=== PATIENT | female | born 1955 | race African-American/Black ===

== ENCOUNTER 2023-08-14 10:48 | Inpatient (IN) | payer MEDICARE, MEDICAID ==
[~2023-08-14] VITALS: Ht 157.5 cm; Wt 71.0 kg
[~2023-08-14 10:48] MED LIST: AMLO10TA4; AMLO10TA80 PO; DEXL60CA3 PO; HYDR200T80; INSU100V28; LOSA1TAB40 PO; METH2.5T PO; SIMV-43 PO; [UNRECOGNIZED DRUG - REMARK]
[2023-08-14] MEDS ORDERED: FUROSEMIDE 40MG/4ML VIAL IVP NR (11:30)
[2023-08-14 12:38] LABS: BASOPHILS % 0.7 % (0.0-2.0); EOSINOPHILS % 0.1 % (0.0-5.0); HEMATOCRIT. 33.2 % (36.0-48.0); HEMOGLOBIN. 10.5 g/dL (12.0-16.0); LYMPHOCYTES % 14.8 % (20.0-50.0); MEAN CORPUSCULAR HEMOGLOBIN 30.1 pg (28.0-32.0); MEAN CORPUSCULAR HGB CONC 31.6 g/dL (31.0-37.0); MEAN CORPUSCULAR VOLUME 95.1 fL (81.0-99.0); MEAN PLATELET VOLUME 8.8 fl (7.4-10.4); MONOCYTES % 5.3 % (2.0-8.0); NEUTROPHILS % 79.1 % (40.0-76.0); PLATELET 268 x1000/uL (130-400); RED BLOOD CELL COUNT 3.49 mill/uL (4.2-5.4); RED CELL DISTRIBUTION WIDTH 16.3 % (11.6-14.6)
[2023-08-14 13:10] LABS: CHLORIDE 94 mEq/L (98-107); INDEX HEMOLYSI 1 (1-3); INDEX ICTERIC 1 (1-4); INDEX LIPEMIC 1 (1-3); POTASSIUM 4.8 mEq/L (3.5-5.1); SODIUM 135 mEq/L (136-145)
[2023-08-14 13:19] LABS: ALANINE AMINOTRANSFERASE 20 IU/L (13-61); ALBUMIN 3.4 g/dL (3.4-5.0); ASPARTATE AMINOTRANSFERASE 54 IU/L (15-37); BILIRUBIN TOTAL 0.4 mg/dL (0.1-1.0); CALCIUM 9.2 mg/dL (8.5-10.1); CARBON DIOXIDE 39 mEq/L (21-32); CREATININE 1.3 mg/dL (0.6-1.3); GLUCOSE 132 mg/dL (70-105); NT PRO B-TYPE NATRIURETIC PEP 4812 pg/mL (5-125); PROTEIN TOTAL 8.9 g/dL (6.0-8.3); TROPONIN I HIGH SENSITIVITY 20 ng/L (<54); UREA NITROGEN BLOOD 28 mg/dL (7-21)
[2023-08-14 15:23] LABS: TROPONIN I HIGH SENSITIVITY 19 ng/L (<54)
[2023-08-14] MEDS ORDERED: AZITHROMYCIN 500MG/250ML 250 ML IV NR (17:30)
[2023-08-14] MEDS ORDERED: PIPERACILLIN/TAZ 3.375G PREMIX 50 ML IV NR (17:30)
[2023-08-14] MEDS ORDERED: ONDANSETRON HCL 4MG/2ML INJ IV PRN (19:00)
[2023-08-14] MEDS ORDERED: IPRATROPIUM/ALBUTEROL 0.5-3(2.5)MG/3ML NEB HHN PRN (19:00)
[2023-08-14] MEDS ORDERED: CLONIDINE 0.1MG TABLET PO PRN (19:00)
[2023-08-14] MEDS ORDERED: ACETAMINOPHEN 325MG TABLET PO PRN ×2 (19:00)
[2023-08-14] MEDS ORDERED: DEXTROSE 50% WATER 50ML SYRINGE IV PRN ×2 (19:00→20:00)
[2023-08-14] MEDS ORDERED: DOCUSATE SODIUM 100MG CAPSULE PO PRN (19:00)
[2023-08-14 19:13] VITALS: BP 119/57; PULSE 81; RESP 19; TEMP 95.5
[2023-08-14 20:00] VITALS: BP 110/75; PULSE 74; RESP 18; TEMP 93.2
[2023-08-14] MEDS ORDERED: INSULIN LISPRO 100 UNITS/ML SUBCUT SCH (21:00)
[2023-08-14] MEDS ORDERED: BLOOD SUGAR DIAGNOSTIC STRIP TEST SCH ×2 (21:00)
[2023-08-14] MEDS: BLOOD SUGAR DIAGNOSTIC STRIP TEST SCH (21:24)
[2023-08-14] MEDS ORDERED: INSULIN LISPRO 100 UNITS/ML SUBCUT ONE (21:29)
[2023-08-14] MEDS: INSULIN LISPRO 100 UNITS/ML SUBCUT SCH (21:39)
[2023-08-14 22:00] LABS: BG BASE EXCESS 9.2 mmol/L (-2.0-2.0); BG CARBOXYHEMOGLOBIN 0.9 % (0.5-1.5); BG DEOXYHEMOGLOBIN 41.2 % (0.0-5.0); BG FRACTION INSPIRED OXYGEN 44; BG HCO3 ACT 42.3 mmol/L (22.0-26.0); BG METHEMOGLOBIN 0.2 % (0.0-1.5); BG OXYGEN SATURATION 58.3 % (92.0-98.5); BG OXYHEMOGLOBIN 57.7 % (94.0-97.0); BG PCO2 137.6 mmHg (35.0-45.0); BG PH 7.106 (7.350-7.450); BG PO2 38.1 mmHg (75.0-100.0); BG SAMPLE SITE RIGHT RADIAL; BG TOTAL HEMOGLOBIN 10.7 g/dL (12.0-18.0); BG VENT MODE NASAL CANNULA
[2023-08-14 23:30] VITALS: RESP 30
[2023-08-15] VITALS (94 sets, daily range): BP systolic 85–149; BP diastolic 53–104; PULSE 84–134; RESP 11–24; TEMP 98–100.3
[2023-08-15 00:13] LABS: BG BASE EXCESS 3.8 mmol/L (-2.0-2.0); BG CARBOXYHEMOGLOBIN 0.7 % (0.5-1.5); BG DEOXYHEMOGLOBIN 16.1 % (0.0-5.0); BG FRACTION INSPIRED OXYGEN 40; BG METHEMOGLOBIN 0.3 % (0.0-1.5); BG OXYGEN SATURATION 83.7 % (92.0-98.5); BG OXYHEMOGLOBIN 82.9 % (94.0-97.0); BG PH 7.053 (7.350-7.450); BG PO2 63.1 mmHg (75.0-100.0); BG SAMPLE SITE RIGHT RADIAL; BG TOTAL HEMOGLOBIN 10.3 g/dL (12.0-18.0); BG VENT MODE MASK - BIPAP
[2023-08-15] MEDS ORDERED: NOREPINEPHRINE 8 MG in DEXT 5% WATER 242 ML IV PRN (00:45)
[2023-08-15] MEDS ORDERED: CEFTRIAXONE 1GM PREMIX 50 ML IV SCH (00:45)
[2023-08-15] MEDS ORDERED: NOREPINEPHRINE 8MG/250ML PMX 250ML IV PRN (02:00)
[2023-08-15] MEDS: IPRATROPIUM/ALBUTEROL 0.5-3(2.5)MG/3ML NEB HHN SCH ×4 (02:03→20:18)
[2023-08-15 02:14] LABS: BG BASE EXCESS 11.8 mmol/L (-2.0-2.0); BG CARBOXYHEMOGLOBIN 0.8 % (0.5-1.5); BG DEOXYHEMOGLOBIN 0.6 % (0.0-5.0); BG FRACTION INSPIRED OXYGEN 50; BG HCO3 ACT 35.7 mmol/L (22.0-26.0); BG METHEMOGLOBIN 0.2 % (0.0-1.5); BG OXYGEN SATURATION 99.4 % (92.0-98.5); BG OXYHEMOGLOBIN 98.4 % (94.0-97.0); BG PCO2 43.6 mmHg (35.0-45.0); BG PH 7.531 (7.350-7.450); BG PO2 137.6 mmHg (75.0-100.0); BG SAMPLE SITE LEFT BRACHIAL; BG TOTAL HEMOGLOBIN 10.8 g/dL (12.0-18.0); BG TOTAL RESPIRATORY RATE 24 b/min; BG VENT MODE VENT - AC
[2023-08-15] MEDS: MIDAZOLAM HCL 100 MG in SODIUM CHLORIDE 0.9% 80 ML IV PRN ×2 (02:30→12:52)
[2023-08-15 02:58] LABS: HEMOGLOBIN. 10.3 g/dL (12.0-16.0); MEAN CORPUSCULAR HEMOGLOBIN 29.7 pg (28.0-32.0); MEAN CORPUSCULAR HGB CONC 31.4 g/dL (31.0-37.0); MEAN CORPUSCULAR VOLUME 94.6 fL (81.0-99.0); MEAN PLATELET VOLUME 9.7 fl (7.4-10.4); PLATELET 207 x1000/uL (130-400); RED BLOOD CELL COUNT 3.49 mill/uL (4.2-5.4); RED CELL DISTRIBUTION WIDTH 16.4 % (11.6-14.6); WHITE BLOOD COUNT 9.3 x1000/uL (4.5-11.0)
[2023-08-15 03:06] LABS: DIFFERENTIAL COMMENT 1
[2023-08-15 03:17] LABS: POTASSIUM 5.1 mEq/L (3.5-5.1)
[2023-08-15 03:23] LABS: CALCIUM 9.3 mg/dL (8.5-10.1); CREATININE 1.6 mg/dL (0.6-1.3)
[2023-08-15] MEDS ORDERED: AZITHROMYCIN 500MG/250ML 250 ML IV SCH (03:30)
[2023-08-15 03:31] LABS: CLARITY URINE TURBID (CLEAR); COLOR URINE ORANGE (YELLOW); GLUCOSE URINE NEGATIVE (NEGATIVE); KETONES URINE NEGATIVE (NEGATIVE); LEUKOCYTE ESTERASE URINE 2+ (NEGATIVE); NITRITE URINE NEGATIVE (NEGATIVE); OCCULT BLOOD URINE 2+ (NEGATIVE); PROTEIN URINE 2+ (NEGATIVE)
[2023-08-15 03:34] LABS: RBC URINE TNTC /hpf (0-2); SQUAMOUS EPITHELIAL CELL URINE 1+ /lpf (RARE/1+); WBC URINE 0-2 /hpf (0-2); YEAST URINE NONE SEEN
[2023-08-15 03:41] LABS: PLATELET ESTIMATE NORMAL; TOXIC GRANULATION 1+
[2023-08-15 04:02] LABS: BACTERIA URINE 1+
[2023-08-15 04:54] LABS: LACTIC ACID 2.6 mmol/L (0.4-2.0)
[2023-08-15] MEDS ORDERED: MAGNESIUM 2 G PREMIX 50 ML IV NR (05:30)
[2023-08-15] MEDS: CEFTRIAXONE 1,000 MG in DEXTROSE 5% WATER 50 ML IV SCH (05:30)
[2023-08-15 06:31] LABS: BASOPHILS % 0.2 % (0.0-2.0); EOSINOPHILS % 0.1 % (0.0-5.0); HEMATOCRIT. 29.6 % (36.0-48.0); HEMOGLOBIN. 9.5 g/dL (12.0-16.0); LYMPHOCYTES % 8.5 % (20.0-50.0); MEAN CORPUSCULAR HEMOGLOBIN 29.9 pg (28.0-32.0); MEAN CORPUSCULAR VOLUME 93.4 fL (81.0-99.0); MEAN PLATELET VOLUME 9.3 fl (7.4-10.4); MONOCYTES % 8.4 % (2.0-8.0); NEUTROPHILS % 82.8 % (40.0-76.0); PLATELET 219 x1000/uL (130-400); RED BLOOD CELL COUNT 3.17 mill/uL (4.2-5.4); RED CELL DISTRIBUTION WIDTH 15.5 % (11.6-14.6); WHITE BLOOD COUNT 13.5 x1000/uL (4.5-11.0)
[2023-08-15 06:34] LABS: CALCIUM 8.8 mg/dL (8.5-10.1); CHLORIDE 96 mEq/L (98-107); POTASSIUM 4.7 mEq/L (3.5-5.1); SODIUM 136 mEq/L (136-145)
[2023-08-15 06:38] LABS: CARBON DIOXIDE 34 mEq/L (21-32); CREATININE 1.5 mg/dL (0.6-1.3); GLUCOSE 178 mg/dL (70-105); PHOSPHORUS 2.4 mg/dL (2.5-4.9); UREA NITROGEN BLOOD 29 mg/dL (7-21)
[2023-08-15] MEDS: BLOOD SUGAR DIAGNOSTIC STRIP TEST SCH ×4 (07:50→21:00)
[2023-08-15] MEDS: INSULIN LISPRO 100 UNITS/ML SUBCUT SCH ×4 (08:20→22:30)
[2023-08-15 08:51] LABS: BG BASE EXCESS 14.5 mmol/L (-2.0-2.0); BG CARBOXYHEMOGLOBIN 0.4 % (0.5-1.5); BG DEOXYHEMOGLOBIN 1.9 % (0.0-5.0); BG FRACTION INSPIRED OXYGEN 50; BG HCO3 ACT 38.6 mmol/L (22.0-26.0); BG METHEMOGLOBIN 0.3 % (0.0-1.5); BG OXYGEN SATURATION 98.1 % (92.0-98.5); BG OXYHEMOGLOBIN 97.4 % (94.0-97.0); BG PCO2 46.7 mmHg (35.0-45.0); BG PH 7.535 (7.350-7.450); BG PO2 100.2 mmHg (75.0-100.0); BG SAMPLE SITE RIGHT RADIAL; BG TOTAL HEMOGLOBIN 9.3 g/dL (12.0-18.0); BG VENT MODE VENT - AC
[2023-08-15] MEDS ORDERED: IOHEXOL-300 100 ML BOTTLE ONE (09:47)
[2023-08-15] MEDS: FUROSEMIDE 40MG/4ML VIAL IVP SCH (09:57)
[2023-08-15 10:16] LABS: INR 1.2; PROTHROMBIN TIME 12.4 sec (9.6-11.0)
[2023-08-15 10:28] LABS: LACTATE DEHYDROGENASE 530 IU/L (100-240)
[2023-08-15] MEDS: PANTOPRAZOLE SODIUM 40 MG/VIAL IV SCH (11:43)
[2023-08-15] MEDS ORDERED: SODIUM BICARBONATE 4% (2.4MEQ) 5ML VIAL IV ONE (13:21)
[2023-08-15 13:36] LABS: BG BASE EXCESS 13.4 mmol/L (-2.0-2.0); BG CARBOXYHEMOGLOBIN 0.2 % (0.5-1.5); BG FRACTION INSPIRED OXYGEN 50; BG HCO3 ACT 36.5 mmol/L (22.0-26.0); BG METHEMOGLOBIN 0.1 % (0.0-1.5); BG OXYHEMOGLOBIN 98.7 % (94.0-97.0); BG PCO2 40.2 mmHg (35.0-45.0); BG PH 7.576 (7.350-7.450); BG SAMPLE SITE RIGHT RADIAL; BG TOTAL HEMOGLOBIN 10.9 g/dL (12.0-18.0); BG VENT MODE VENT - AC
[2023-08-15 15:20] LABS: PROTEIN BODY FLUID 2.5 gm/dL
[2023-08-15 16:50] LABS: BODY FLUID MONOCYTES 27 %; BODY FLUID WBC 110 /cu mm (0-200)
[2023-08-15 16:51] LABS: BODY FLUID RBC 11500 /cu mm (0-2000)
[2023-08-15] MEDS: METHYLPREDNISOLONE SOD SUCC 40MG/ML (ACT-O-VIAL) IV SCH (18:16)
[2023-08-15] MEDS: AZITHROMYCIN 500 MG in DEXT 5% WATER 250 ML IV SCH (23:46)
[2023-08-16] VITALS (72 sets, daily range): BP systolic 91–128; BP diastolic 48–90; PULSE 83–108; RESP 10–21; TEMP 98–100.4
[2023-08-16] MEDS: METHYLPREDNISOLONE SOD SUCC 40MG/ML (ACT-O-VIAL) IV SCH ×3 (02:26→17:44)
[2023-08-16] MEDS: IPRATROPIUM/ALBUTEROL 0.5-3(2.5)MG/3ML NEB HHN SCH ×4 (02:52→20:58)
[2023-08-16 05:37] LABS: CALCIUM 8.7 mg/dL (8.5-10.1); CHLORIDE 97 mEq/L (98-107); HEMATOCRIT. 28.4 % (36.0-48.0); HEMOGLOBIN. 9.1 g/dL (12.0-16.0); INDEX HEMOLYSI 1 (1-3); INDEX ICTERIC 1 (1-4); INDEX LIPEMIC 1 (1-3); MEAN CORPUSCULAR HEMOGLOBIN 29.2 pg (28.0-32.0); MEAN CORPUSCULAR HGB CONC 32.1 g/dL (31.0-37.0); MEAN PLATELET VOLUME 9.1 fl (7.4-10.4); PLATELET 211 x1000/uL (130-400); POTASSIUM 4.8 mEq/L (3.5-5.1); RED BLOOD CELL COUNT 3.12 mill/uL (4.2-5.4); SODIUM 138 mEq/L (136-145); WHITE BLOOD COUNT 10.1 x1000/uL (4.5-11.0)
[2023-08-16 05:44] LABS: DIFFERENTIAL COMMENT 1
[2023-08-16] MEDS: CEFTRIAXONE 1,000 MG in DEXTROSE 5% WATER 50 ML IV SCH (05:53)
[2023-08-16 05:55] LABS: CREATININE 1.6 mg/dL (0.6-1.3); GLUCOSE 191 mg/dL (70-105); UREA NITROGEN BLOOD 29 mg/dL (7-21)
[2023-08-16] MEDS: BLOOD SUGAR DIAGNOSTIC STRIP TEST SCH ×4 (07:48→20:55)
[2023-08-16 09:01] LABS: BG BASE EXCESS 10.6 mmol/L (-2.0-2.0); BG DEOXYHEMOGLOBIN 0.7 % (0.0-5.0); BG FRACTION INSPIRED OXYGEN 50; BG HCO3 ACT 34.8 mmol/L (22.0-26.0); BG METHEMOGLOBIN 0.3 % (0.0-1.5); BG OXYGEN SATURATION 99.3 % (92.0-98.5); BG PCO2 44.8 mmHg (35.0-45.0); BG PH 7.508 (7.350-7.450); BG PO2 180.1 mmHg (75.0-100.0); BG SAMPLE SITE LEFT RADIAL; BG TOTAL HEMOGLOBIN 10.2 g/dL (12.0-18.0); BG TOTAL RESPIRATORY RATE 12 b/min; BG VENT MODE VENT - AC
[2023-08-16] MEDS: PANTOPRAZOLE SODIUM 40 MG/VIAL IV SCH (09:10)
[2023-08-16] MEDS: FUROSEMIDE 40MG/4ML VIAL IVP SCH ×2 (09:10→17:44)
[2023-08-16] MEDS: INSULIN LISPRO 100 UNITS/ML SUBCUT SCH ×4 (09:15→20:55)
[2023-08-16] MEDS ORDERED: MAGNESIUM 2 G PREMIX 50 ML IV NR (10:45)
[2023-08-16] MEDS ORDERED: MORPHINE SULFATE 2 MG/ML CPJ (NOT FOR IM USE) IV PRN (15:30)
[2023-08-16] MEDS ORDERED: LORAZEPAM 2MG/ML CPJ IV PRN (15:30)
[2023-08-16 16:20] LABS: PLATELET ESTIMATE NORMAL
[2023-08-16] MEDS: ENOXAPARIN 40MG/0.4ML SYR SUBCUT SCH (21:14)
[2023-08-16] MEDS: AZITHROMYCIN 500 MG in DEXT 5% WATER 250 ML IV SCH (23:19)
[2023-08-17] VITALS (56 sets, daily range): BP systolic 94–125; BP diastolic 52–77; PULSE 83–121; RESP 12–31; TEMP 97.9–98.7; O2SAT 98
[2023-08-17] MEDS: IPRATROPIUM/ALBUTEROL 0.5-3(2.5)MG/3ML NEB HHN SCH ×3 (01:20→13:13)
[2023-08-17] MEDS: METHYLPREDNISOLONE SOD SUCC 40MG/ML (ACT-O-VIAL) IV SCH ×3 (02:54→17:39)
[2023-08-17] MEDS: CEFTRIAXONE 1,000 MG in DEXTROSE 5% WATER 50 ML IV SCH (05:30)
[2023-08-17 05:51] LABS: POTASSIUM 3.5 mEq/L (3.5-5.1)
[2023-08-17 05:53] LABS: BASOPHILS % 0.1 % (0.0-2.0); HEMATOCRIT. 27.3 % (36.0-48.0); HEMOGLOBIN. 8.8 g/dL (12.0-16.0); LYMPHOCYTES % 7.2 % (20.0-50.0); MEAN CORPUSCULAR HGB CONC 32.5 g/dL (31.0-37.0); MEAN CORPUSCULAR VOLUME 89.4 fL (81.0-99.0); MEAN PLATELET VOLUME 9.5 fl (7.4-10.4); MONOCYTES % 4.5 % (2.0-8.0); NEUTROPHILS % 88.2 % (40.0-76.0); PLATELET 207 x1000/uL (130-400); RED BLOOD CELL COUNT 3.05 mill/uL (4.2-5.4); RED CELL DISTRIBUTION WIDTH 16.8 % (11.6-14.6); WHITE BLOOD COUNT 11.7 x1000/uL (4.5-11.0)
[2023-08-17 05:59] LABS: CALCIUM 9.1 mg/dL (8.5-10.1); CREATININE 1.6 mg/dL (0.6-1.3)
[2023-08-17] MEDS: BLOOD SUGAR DIAGNOSTIC STRIP TEST SCH ×4 (07:34→20:38)
[2023-08-17] MEDS: INSULIN LISPRO 100 UNITS/ML SUBCUT SCH ×4 (07:34→20:45)
[2023-08-17 08:50] LABS: BG BASE EXCESS 10.7 mmol/L (-2.0-2.0); BG CARBOXYHEMOGLOBIN 0.3 % (0.5-1.5); BG FRACTION INSPIRED OXYGEN 40; BG HCO3 ACT 32.5 mmol/L (22.0-26.0); BG METHEMOGLOBIN 0.3 % (0.0-1.5); BG OXYHEMOGLOBIN 98.4 % (94.0-97.0); BG PCO2 32.8 mmHg (35.0-45.0); BG PH 7.614 (7.350-7.450); BG PO2 158.3 mmHg (75.0-100.0); BG SAMPLE SITE RIGHT RADIAL; BG TOTAL HEMOGLOBIN 9.8 g/dL (12.0-18.0); BG TOTAL RESPIRATORY RATE 16 b/min; BG VENT MODE VENT - AC
[2023-08-17] MEDS: PANTOPRAZOLE SODIUM 40 MG/VIAL IV SCH (09:14)
[2023-08-17] MEDS: FUROSEMIDE 40MG/4ML VIAL IVP SCH (09:15)
[2023-08-17] MEDS ORDERED: ACETAZOLAMIDE SODIUM 500MG/VIAL IV NR (10:30)
[2023-08-17 10:42] LABS: BG BASE EXCESS 9.5 mmol/L (-2.0-2.0); BG CARBOXYHEMOGLOBIN 0.3 % (0.5-1.5); BG DEOXYHEMOGLOBIN 2.7 % (0.0-5.0); BG METHEMOGLOBIN 0.2 % (0.0-1.5); BG OXYGEN SATURATION 97.3 % (92.0-98.5); BG OXYHEMOGLOBIN 96.8 % (94.0-97.0); BG PCO2 59.6 mmHg (35.0-45.0); BG PH 7.399 (7.350-7.450); BG PO2 107.2 mmHg (75.0-100.0); BG SAMPLE SITE RIGHT BRACHIAL; BG TOTAL HEMOGLOBIN 10.7 g/dL (12.0-18.0); BG VENT MODE VENT - CPAP
[2023-08-17] MEDS: ENOXAPARIN 40MG/0.4ML SYR SUBCUT SCH (20:42)
[2023-08-17] MEDS: AZITHROMYCIN 500 MG in DEXT 5% WATER 250 ML IV SCH (22:01)
[2023-08-18] VITALS (26 sets, daily range): BP systolic 90–137; BP diastolic 47–126; PULSE 80–100; RESP 16–30; TEMP 96.4–98.5; O2SAT 95–97
[2023-08-18] MEDS: METHYLPREDNISOLONE SOD SUCC 40MG/ML (ACT-O-VIAL) IV SCH ×3 (02:01→18:30)
[2023-08-18] MEDS: CEFTRIAXONE 1,000 MG in DEXTROSE 5% WATER 50 ML IV SCH (05:48)
[2023-08-18 06:26] LABS: HEMATOCRIT. 27.9 % (36.0-48.0); HEMOGLOBIN. 9.1 g/dL (12.0-16.0); MEAN CORPUSCULAR HEMOGLOBIN 29.7 pg (28.0-32.0); MEAN CORPUSCULAR HGB CONC 32.5 g/dL (31.0-37.0); MEAN CORPUSCULAR VOLUME 91.5 fL (81.0-99.0); MEAN PLATELET VOLUME 9.4 fl (7.4-10.4); PLATELET 194 x1000/uL (130-400); RED BLOOD CELL COUNT 3.05 mill/uL (4.2-5.4); RED CELL DISTRIBUTION WIDTH 16.9 % (11.6-14.6); WHITE BLOOD COUNT 9.8 x1000/uL (4.5-11.0)
[2023-08-18 06:51] LABS: DIFFERENTIAL COMMENT 1
[2023-08-18 06:57] LABS: POTASSIUM 3.5 mEq/L (3.5-5.1)
[2023-08-18 07:06] LABS: CALCIUM 8.9 mg/dL (8.5-10.1); CREATININE 1.6 mg/dL (0.6-1.3); PHOSPHORUS 6.2 mg/dL (2.5-4.9)
[2023-08-18] MEDS: BLOOD SUGAR DIAGNOSTIC STRIP TEST SCH ×4 (07:20→20:55)
[2023-08-18] MEDS: PANTOPRAZOLE SODIUM 40 MG/VIAL IV SCH (08:55)
[2023-08-18] MEDS: FUROSEMIDE 40MG/4ML VIAL IVP SCH (08:56)
[2023-08-18] MEDS: INSULIN LISPRO 100 UNITS/ML SUBCUT SCH ×4 (09:03→21:34)
[2023-08-18] MEDS: IPRATROPIUM/ALBUTEROL 0.5-3(2.5)MG/3ML NEB HHN SCH ×3 (09:20→21:06)
[2023-08-18 10:02] LABS: BG BASE EXCESS 9.2 mmol/L (-2.0-2.0); BG CARBOXYHEMOGLOBIN 0.4 % (0.5-1.5); BG DEOXYHEMOGLOBIN 5.4 % (0.0-5.0); BG FRACTION INSPIRED OXYGEN 28; BG HCO3 ACT 36.4 mmol/L (22.0-26.0); BG METHEMOGLOBIN 0.3 % (0.0-1.5); BG OXYGEN SATURATION 94.6 % (92.0-98.5); BG OXYHEMOGLOBIN 93.9 % (94.0-97.0); BG PCO2 67.2 mmHg (35.0-45.0); BG PH 7.352 (7.350-7.450); BG PO2 78.8 mmHg (75.0-100.0); BG SAMPLE SITE RIGHT BRACHIAL; BG TOTAL HEMOGLOBIN 9.7 g/dL (12.0-18.0); BG VENT MODE NASAL CANNULA
[2023-08-18 11:07] LABS: ANISOCYTOSIS 1+; PLATELET ESTIMATE NORMAL
[2023-08-18] MEDS: ENOXAPARIN 40MG/0.4ML SYR SUBCUT SCH (21:24)
[2023-08-19] VITALS (9 sets, daily range): BP systolic 90–113; BP diastolic 44–70; PULSE 49–90; RESP 18–29; TEMP 96–98.6; O2SAT 98
[2023-08-19] MEDS: AZITHROMYCIN 500 MG in DEXT 5% WATER 250 ML IV SCH (01:19)
[2023-08-19] MEDS: METHYLPREDNISOLONE SOD SUCC 40MG/ML (ACT-O-VIAL) IV SCH ×3 (01:19→17:28)
[2023-08-19] MEDS ORDERED: GABAPENTIN 400MG CAPSULE PO NR (05:00)
[2023-08-19] MEDS: CEFTRIAXONE 1,000 MG in DEXTROSE 5% WATER 50 ML IV SCH (05:27)
[2023-08-19] MEDS: BLOOD SUGAR DIAGNOSTIC STRIP TEST SCH ×4 (06:45→21:24)
[2023-08-19 07:42] LABS: HEMATOCRIT. 27.6 % (36.0-48.0); HEMOGLOBIN. 8.8 g/dL (12.0-16.0); MEAN CORPUSCULAR HEMOGLOBIN 29.3 pg (28.0-32.0); MEAN CORPUSCULAR HGB CONC 31.9 g/dL (31.0-37.0); MEAN CORPUSCULAR VOLUME 91.9 fL (81.0-99.0); PLATELET 176 x1000/uL (130-400); RED CELL DISTRIBUTION WIDTH 16.3 % (11.6-14.6); WHITE BLOOD COUNT 9.2 x1000/uL (4.5-11.0)
[2023-08-19 07:56] LABS: DIFFERENTIAL COMMENT 1
[2023-08-19 08:13] LABS: POTASSIUM 3.3 mEq/L (3.5-5.1)
[2023-08-19 08:30] LABS: CALCIUM 8.3 mg/dL (8.5-10.1); CREATININE 1.2 mg/dL (0.6-1.3); PHOSPHORUS 4.7 mg/dL (2.5-4.9); T4 FREE 1.08 ng/dL (0.76-1.46); THYROID STIMULATING HORMONE 0.6 uIU/mL (0.36-3.74)
[2023-08-19 08:42] LABS: BG BASE EXCESS 8.7 mmol/L (-2.0-2.0); BG DEOXYHEMOGLOBIN 5.2 % (0.0-5.0); BG FRACTION INSPIRED OXYGEN 28; BG HCO3 ACT 36.8 mmol/L (22.0-26.0); BG METHEMOGLOBIN 0.2 % (0.0-1.5); BG OXYGEN SATURATION 94.8 % (92.0-98.5); BG OXYHEMOGLOBIN 94.6 % (94.0-97.0); BG PCO2 72.7 mmHg (35.0-45.0); BG PH 7.322 (7.350-7.450); BG PO2 84.7 mmHg (75.0-100.0); BG SAMPLE SITE RIGHT BRACHIAL; BG TOTAL HEMOGLOBIN 10.4 g/dL (12.0-18.0); BG VENT MODE NASAL CANNULA
[2023-08-19] MEDS: IPRATROPIUM/ALBUTEROL 0.5-3(2.5)MG/3ML NEB HHN SCH ×2 (09:30→14:33)
[2023-08-19] MEDS: PANTOPRAZOLE SODIUM 40 MG/VIAL IV SCH (09:36)
[2023-08-19] MEDS: FUROSEMIDE 40MG/4ML VIAL IVP SCH (09:36)
[2023-08-19] MEDS: INSULIN LISPRO 100 UNITS/ML SUBCUT SCH ×4 (09:47→21:33)
[2023-08-19 16:29] LABS: PLATELET ESTIMATE NORMAL
[2023-08-19 17:59] LABS: BG BASE EXCESS 9.5 mmol/L (-2.0-2.0); BG CARBOXYHEMOGLOBIN 0.3 % (0.5-1.5); BG DEOXYHEMOGLOBIN 7.5 % (0.0-5.0); BG FRACTION INSPIRED OXYGEN 28; BG HCO3 ACT 36.2 mmol/L (22.0-26.0); BG METHEMOGLOBIN 0.3 % (0.0-1.5); BG OXYGEN SATURATION 92.5 % (92.0-98.5); BG OXYHEMOGLOBIN 91.9 % (94.0-97.0); BG PCO2 61.8 mmHg (35.0-45.0); BG PH 7.385 (7.350-7.450); BG PO2 69.1 mmHg (75.0-100.0); BG SAMPLE SITE RIGHT BRACHIAL; BG TOTAL HEMOGLOBIN 10.1 g/dL (12.0-18.0); BG VENT MODE NASAL CANNULA
[2023-08-19] MEDS: ENOXAPARIN 40MG/0.4ML SYR SUBCUT SCH (21:22)
[2023-08-19] MEDS ORDERED: BRIMONIDINE 0.2% OPHTH DROPS 5ML BOTHEYE ONE (22:00)
[2023-08-19] MEDS ORDERED: *PATIENT'S OWN MEDICATION STORAGE XX SCH (22:00)
[2023-08-19] MEDS: BRIMONIDINE 0.2% OPHTH DROPS 5ML BOTHEYE SCH (23:18)
[2023-08-19] MEDS: DICLOFENAC SODIUM 0.1% OPHTH 2.5 ML BOTTLE BOTHEYE SCH (23:19)
[2023-08-20] VITALS (8 sets, daily range): BP systolic 97–122; BP diastolic 58–84; PULSE 64–83; RESP 16–23; TEMP 97.2–99.3
[2023-08-20] MEDS: METHYLPREDNISOLONE SOD SUCC 40MG/ML (ACT-O-VIAL) IV SCH ×3 (01:07→17:59)
[2023-08-20] MEDS: CEFTRIAXONE 1,000 MG in DEXTROSE 5% WATER 50 ML IV SCH (05:19)
[2023-08-20 06:35] LABS: HEMATOCRIT. 31.4 % (36.0-48.0); HEMOGLOBIN. 10.1 g/dL (12.0-16.0); MEAN CORPUSCULAR HEMOGLOBIN 29.6 pg (28.0-32.0); MEAN CORPUSCULAR HGB CONC 32.2 g/dL (31.0-37.0); MEAN CORPUSCULAR VOLUME 91.7 fL (81.0-99.0); MEAN PLATELET VOLUME 9.5 fl (7.4-10.4); PLATELET 161 x1000/uL (130-400); RED BLOOD CELL COUNT 3.42 mill/uL (4.2-5.4); RED CELL DISTRIBUTION WIDTH 16.5 % (11.6-14.6); WHITE BLOOD COUNT 7.7 x1000/uL (4.5-11.0)
[2023-08-20 06:56] LABS: CHLORIDE 94 mEq/L (98-107); INDEX HEMOLYSI 1 (1-3); INDEX ICTERIC 1 (1-4); INDEX LIPEMIC 1 (1-3); POTASSIUM 3.8 mEq/L (3.5-5.1); SODIUM 135 mEq/L (136-145)
[2023-08-20 07:06] LABS: DIFFERENTIAL COMMENT 1
[2023-08-20 07:23] LABS: ALANINE AMINOTRANSFERASE 28 IU/L (13-61); ALBUMIN 2.9 g/dL (3.4-5.0); ASPARTATE AMINOTRANSFERASE 54 IU/L (15-37); BILIRUBIN TOTAL 0.3 mg/dL (0.1-1.0); CALCIUM 8.7 mg/dL (8.5-10.1); CARBON DIOXIDE 34 mEq/L (21-32); CREATININE 1.1 mg/dL (0.6-1.3); GLUCOSE 202 mg/dL (70-105); NT PRO B-TYPE NATRIURETIC PEP 7223 pg/mL (5-125); PROTEIN TOTAL 7.3 g/dL (6.0-8.3); UREA NITROGEN BLOOD 48 mg/dL (7-21)
[2023-08-20] MEDS: BLOOD SUGAR DIAGNOSTIC STRIP TEST SCH ×4 (07:40→20:55)
[2023-08-20] MEDS: INSULIN LISPRO 100 UNITS/ML SUBCUT SCH ×4 (08:10→20:54)
[2023-08-20] MEDS: FUROSEMIDE 40MG/4ML VIAL IVP SCH (09:30)
[2023-08-20] MEDS: PANTOPRAZOLE SODIUM 40 MG/VIAL IV SCH (09:30)
[2023-08-20] MEDS: DICLOFENAC SODIUM 0.1% OPHTH 2.5 ML BOTTLE BOTHEYE SCH ×2 (09:32→18:06)
[2023-08-20] MEDS: BRIMONIDINE 0.2% OPHTH DROPS 5ML BOTHEYE SCH ×2 (09:32→18:06)
[2023-08-20 10:25] LABS: BG BASE EXCESS 6.6 mmol/L (-2.0-2.0); BG CARBOXYHEMOGLOBIN 0.2 % (0.5-1.5); BG DEOXYHEMOGLOBIN 24.9 % (0.0-5.0); BG FRACTION INSPIRED OXYGEN 21; BG HCO3 ACT 32.8 mmol/L (22.0-26.0); BG METHEMOGLOBIN 0.3 % (0.0-1.5); BG OXYHEMOGLOBIN 74.6 % (94.0-97.0); BG PH 7.386 (7.350-7.450); BG PO2 41.9 mmHg (75.0-100.0); BG SAMPLE SITE RIGHT BRACHIAL; BG TOTAL HEMOGLOBIN 10.6 g/dL (12.0-18.0); BG VENT MODE ROOM AIR
[2023-08-20 13:40] LABS: PLATELET ESTIMATE NORMAL
[2023-08-20] MEDS: ENOXAPARIN 40MG/0.4ML SYR SUBCUT SCH (20:54)
[2023-08-21] VITALS: BP 108/62; PULSE 74; RESP 19; TEMP 98.6
[2023-08-21] MEDS: METHYLPREDNISOLONE SOD SUCC 40MG/ML (ACT-O-VIAL) IV SCH ×3 (00:48→17:30)
[2023-08-21 04:00] VITALS: BP 102/59; PULSE 86; RESP 18; TEMP 98.1
[2023-08-21] MEDS: BLOOD SUGAR DIAGNOSTIC STRIP TEST SCH ×4 (06:45→21:41)
[2023-08-21] MEDS: INSULIN LISPRO 100 UNITS/ML SUBCUT SCH ×4 (07:59→21:43)
[2023-08-21 08:00] VITALS: BP 120/76; PULSE 88; RESP 19; TEMP 98
[2023-08-21] MEDS: BRIMONIDINE 0.2% OPHTH DROPS 5ML BOTHEYE SCH ×2 (08:00→17:32)
[2023-08-21] MEDS: PANTOPRAZOLE SODIUM 40 MG/VIAL IV SCH (08:05)
[2023-08-21] MEDS: FUROSEMIDE 40MG/4ML VIAL IVP SCH (08:05)
[2023-08-21] MEDS: DICLOFENAC SODIUM 0.1% OPHTH 2.5 ML BOTTLE BOTHEYE SCH ×2 (08:35→17:31)
[2023-08-21 12:00] VITALS: BP 117/65; PULSE 84; RESP 18; TEMP 97.8
[2023-08-21] MEDS ORDERED: CYCL1DRO14 EACHEYE (13:06)
[2023-08-21] MEDS ORDERED: HYDR200T35 MT (13:09)
[2023-08-21] MEDS ORDERED: ASPI-1497 MT (13:09)
[2023-08-21] MEDS ORDERED: SIMV-43 MT (13:09)
[2023-08-21 16:00] VITALS: BP 107/62; PULSE 72; RESP 18; TEMP 97.9
[2023-08-21 20:00] VITALS: BP 103/74; PULSE 81; RESP 18; TEMP 97.7
[2023-08-21] MEDS: ENOXAPARIN 40MG/0.4ML SYR SUBCUT SCH (21:41)
[2023-08-22] VITALS (8 sets, daily range): BP systolic 107–117; BP diastolic 52–63; PULSE 77–83; RESP 18–35; TEMP 97.6–97.8
[2023-08-22] MEDS: METHYLPREDNISOLONE SOD SUCC 40MG/ML (ACT-O-VIAL) IV SCH ×2 (00:18→10:35)
[2023-08-22] MEDS: BLOOD SUGAR DIAGNOSTIC STRIP TEST SCH ×4 (06:00→20:26)
[2023-08-22] MEDS: INSULIN LISPRO 100 UNITS/ML SUBCUT SCH ×4 (08:19→20:37)
[2023-08-22] MEDS: PANTOPRAZOLE SODIUM 40 MG/VIAL IV SCH (08:20)
[2023-08-22] MEDS: DICLOFENAC SODIUM 0.1% OPHTH 2.5 ML BOTTLE BOTHEYE SCH ×2 (08:20→17:24)
[2023-08-22] MEDS: BRIMONIDINE 0.2% OPHTH DROPS 5ML BOTHEYE SCH ×2 (08:20→17:26)
[2023-08-22] MEDS: FUROSEMIDE 40MG/4ML VIAL IVP SCH (08:30)
[2023-08-22] MEDS ORDERED: PREDNISONE 20MG TABLET PO SCH (09:00)
[2023-08-22] MEDS ORDERED: FURO40TA5 MT (11:34)
[2023-08-22] MEDS ORDERED: P20 MT (11:34)
[2023-08-22] MEDS: PREDNISONE 20MG TABLET PO SCH (17:25)
[2023-08-22] MEDS: ENOXAPARIN 40MG/0.4ML SYR SUBCUT SCH (20:37)
[2023-08-23] VITALS (7 sets, daily range): BP systolic 103–125; BP diastolic 50–70; PULSE 65–88; RESP 17–22; TEMP 89–98.4
[2023-08-23] MEDS: BLOOD SUGAR DIAGNOSTIC STRIP TEST SCH ×4 (07:02→20:38)
[2023-08-23] MEDS: FUROSEMIDE 40MG/4ML VIAL IVP SCH (08:25)
[2023-08-23] MEDS: DICLOFENAC SODIUM 0.1% OPHTH 2.5 ML BOTTLE BOTHEYE SCH ×2 (08:25→17:45)
[2023-08-23] MEDS: PANTOPRAZOLE SODIUM 40 MG/VIAL IV SCH (08:25)
[2023-08-23] MEDS: BRIMONIDINE 0.2% OPHTH DROPS 5ML BOTHEYE SCH ×2 (08:26→17:45)
[2023-08-23] MEDS: INSULIN LISPRO 100 UNITS/ML SUBCUT SCH ×4 (08:26→20:58)
[2023-08-23] MEDS: PREDNISONE 20MG TABLET PO SCH ×2 (08:27→13:30)
[2023-08-23] MEDS ORDERED: ONDANSETRON 4MG ODT PO PRN (15:15)
[2023-08-23] MEDS: ENOXAPARIN 40MG/0.4ML SYR SUBCUT SCH (20:59)
[2023-08-24] VITALS: BP 118/69; PULSE 74; RESP 17; TEMP 98.1
[2023-08-24 04:00] VITALS: BP 120/67; PULSE 74; RESP 17; TEMP 98.6
[2023-08-24] MEDS: BLOOD SUGAR DIAGNOSTIC STRIP TEST SCH ×2 (06:49→12:30)
[2023-08-24 08:00] VITALS: BP 124/68; PULSE 75; RESP 18; TEMP 97.1
[2023-08-24] MEDS: INSULIN LISPRO 100 UNITS/ML SUBCUT SCH ×2 (08:10→12:39)
[2023-08-24] MEDS: BRIMONIDINE 0.2% OPHTH DROPS 5ML BOTHEYE SCH (09:00)
[2023-08-24] MEDS: FUROSEMIDE 40MG/4ML VIAL IVP SCH (10:03)
[2023-08-24] MEDS: PANTOPRAZOLE SODIUM 40 MG/VIAL IV SCH (10:03)
[2023-08-24] MEDS: PREDNISONE 20MG TABLET PO SCH (10:16)
[2023-08-24] MEDS: DICLOFENAC SODIUM 0.1% OPHTH 2.5 ML BOTTLE BOTHEYE SCH (10:16)
[2023-08-24 12:00] VITALS: BP 122/71; PULSE 88; RESP 19; TEMP 96.9
[2023-08-24 13:33] VITALS: BP 122/71; PULSE 88; TEMP 96.9
== END 2023-08-24 11:25 | disposition home health service (06) | DRG 208 ==
LOC: ER 11:04 → 6EST 12:16 → CVICU 08-15 00:10 → 7WST 08-18 11:29
PROVIDERS: ADMIT Family Medicine Adult Medicine; ATTEND Family Medicine Adult Medicine
PROC: 5A1945Z Respiratory Ventilation, 24-96 Consecutive Hours (ICD-10-PCS; principal; 2023-08-15)
PROC: 0BH17EZ Insertion of Endotracheal Airway into Trachea, Via Natural or Artificial Opening (ICD-10-PCS; 2023-08-15)
PROC: 0W9B3ZZ Drainage of Left Pleural Cavity, Percutaneous Approach (ICD-10-PCS; 2023-08-17)
PROC: 5A09357 Assistance with Respiratory Ventilation, Less than 24 Consecutive Hours, Continuous Positive Airway Pressure (ICD-10-PCS; 2023-08-20)
PROC: 5A09357 Assistance with Respiratory Ventilation, Less than 24 Consecutive Hours, Continuous Positive Airway Pressure (ICD-10-PCS; 2023-08-22)
PROC: 5A09357 Assistance with Respiratory Ventilation, Less than 24 Consecutive Hours, Continuous Positive Airway Pressure (ICD-10-PCS; 2023-08-23)
DX: J96.01 Acute respiratory failure with hypoxia (principal); I50.31 Acute diastolic (congestive) heart failure; N17.9 Acute kidney failure, unspecified; J44.1 Chronic obstructive pulmonary disease with (acute) exacerbation; E87.3 Alkalosis; I31.39 Other pericardial effusion (noninflammatory); I11.0 Hypertensive heart disease with heart failure; J96.02 Acute respiratory failure with hypercapnia; M10.9 Gout, unspecified; E78.5 Hyperlipidemia, unspecified; E87.6 Hypokalemia; D72.829 Elevated white blood cell count, unspecified; D64.9 Anemia, unspecified; R26.9 Unspecified abnormalities of gait and mobility; R53.81 Other malaise; M32.9 Systemic lupus erythematosus, unspecified; R13.10 Dysphagia, unspecified; F17.200 Nicotine dependence, unspecified, uncomplicated; Z99.2 Dependence on renal dialysis; Z99.81 Dependence on supplemental oxygen; Z82.49 Family history of ischemic heart disease and other diseases of the circulatory system
CPT/HCPCS: 31500; 32555; 36415; 36600; 71045; 71260; 80048; 80053; 80061; 81003; 82375; 82805; 82962; 83036; 83540; 83550; 83605; 83615; 83735; 83880; 84100; 84145; 84439; 84443; 84481; 84484; 85025; 85379; 87070; 88108; 88312; 93005; 93306; 93970; 94002; 94003; 94640; 94660; 97162; 97165; 99285; C1893; C9113; J0456; J0696; J1120; J1650; J1815; J1940; J2250; J2920; J3475; J3490; J7050; J7060; J7512; Q9967; A4315